=== PATIENT | female | born 1995 | race Caucasian/White ===

== ENCOUNTER 2017-01-30 12:55 | Emergency (ER) | payer OTHER ==
[~2017-01-30] VITALS: Ht 162.6 cm; Wt 77.8 kg
[2017-01-30 13:01] VITALS: Ht 162.6 cm; Wt 77.8 kg
[2017-01-30] MEDS ORDERED: IBUP-1542 PO (14:19)
[2017-01-30] MEDS ORDERED: AZIT250T94 PO (14:19)
--- NOTE | 2017-01-30 14:27 | ERD ---
ER Documentation Chief Complaint Chief Complaint fever , sore throat and mouth sores since sunday HPI 21-year-old female complaining of fever and sore throat 3 days. Patient reports sores in her mouth as well. She has pain when swallowing. She took Tylenol at home for fever, last dose was 4 AM. Denies cough or runny nose. ROS All systems reviewed and are negative except as per history of present illness. Medications Home Meds Active Scripts Ibuprofen* (Motrin*) 600 Mg Tab, 600 MG PO Q6H Y for PAIN AND OR ELEVATED TEMP, #30 TAB Prov:JW HUTCHISON. ASSISTANT PRODUCER 01/30/17 Azithromycin* (Zithromax*) 250 Mg Tablet, 250 MG PO .ZPACK DIRECTED, #6 TAB TAKE 500 MG (2 TABS) THE FIRST DAY THEN 250 MG (1 TAB) DAYS 2-5 Prov:JW HUTCHISON. ASSISTANT PRODUCER 01/30/17 PMhx/Soc Medical and Surgical Hx: pt denies Medical Hx, pt denies Surgical Hx Physical Exam Vitals Vital Signs Date Time Temp Pulse Resp B/P Pulse Ox O2 Delivery O2 Flow Rate FiO2 01/30/17 13:01 100.7 118 18 132/83 97 Physical Exam General: Well-developed, well-nourished, conscious and coherent, in no distress Skin: Warm and dry without rash, good texture and turgor Head: Normocephalic without evidence of trauma Eyes: Sclera and conjunctivae normal; pupils equal, round, and reactive to light; extraocular movements are intact Nose/Face: Without rhinorrhea Mouth/throat: Mucous membranes are moist. No oral lesions noted. Posterior pharynx erythematous and swollen with purulent exudate Neck: Supple without meningismus or adenopathy. Carotids are equal. Trachea midline. No bruits or JVD Chest: Normal AP diameter. Good expansion without retractions. Nontender. Lungs are clear to auscultate bilaterally with good tidal volume Heart: Regular rate and rhythm. No murmur, rub, or gallops heard Extremities: Full range of motion. Good strength bilaterally. No clubbing, cyanosis, or edema. Peripheral pulses are intact. Sensation intact Neuro: Alert and oriented 4, GCS 15. Cranial nerves grossly intact. Motor and sensory exams nonfocal. Moves all extremities. Speech clear. Gait normal Procedures/MDM Well-appearing 21-year-old female presented ED with fever and sore throat 3 days. Patient symptoms and exam findings are consistent with strep pharyngitis. Patient will be treated empirically. Patient is allergic to penicillin, azithromycin will be given. I doubt URI, pneumonia, bronchitis, or measles. Patient appears well, stable for discharge and outpatient management. Medical decision making shared with patient and family. Education provided to patient and family. Patient and family expressed understanding of the plan. Medications on discharge: Ibuprofen, azithromycin. Follow-up: Primary care provider in 2-3 days or return to ED if worse. Disclaimer: Inadvertent spelling and grammatical errors are likely due to EHR/ dictation software use and do not reflect on the overall quality of patient care. Also, please note that the electronic time recorded on this note does not necessarily reflect the actual time of the patient encounter. Departure Diagnosis: Primary Impression: Strep pharyngitis Condition: Stable Patient Instructions: Pharyngitis, Strep (Presumed) [facility] Usted se [place] hecho un examen mdico de control que le indica que no est en judson condicin que requiera tratamiento urgente en el Departamento de Emergencia. Un estudio ms profundo y el tratamiento de rodney condicin pueden esperar sin ningn riesgo hasta que usted sea atendida/o en el consultorio de rodney mdico o judson cl paola. Es responsabilidad suya arreglar judson dilip para el seguimiento del mercedes. MANEJO DE CONDICIONES NO URGENTES EN EL FUTURO 1) Si usted tiene un mdico de atencin primaria: Usted debera llamar a rodney mdico de atencin primaria antes de venir al departamento de emergencia. Despus de las horas de consultorio, rodney doctor o rodney asociado/a est disponible por telfono. El mdico o enfermero de muna en el servicio telefnico puede asesorarle por coby medio para atender el problema, o mercedes contrario se puede programar judson dilip. 2) Si usted no tiene un mdico de atencin primaria: Llame al mdico o clnica de referencia que aparece abajo sharri las horas de consultorio para hacer judson dilip para que le vean. CLINICAS: [facility] [phone] [facility] [phone] [facility] [phone] [place] [id number] [phone] [place] [id number] [phone] [facility]. [phone] [address] Additional Instructions: Call your primary care doctor TOMORROW for an appointment during the next 2-3 days.See the doctor sooner or return here if your condition worsens before your appointment time. JW HUTCHISON NP Jan 30, 2017 14:27
== END 2017-01-30 14:40 | disposition home or self-care (01) ==
LOC: FTE 12:55
DX: J02.0 Streptococcal pharyngitis (principal)
CPT/HCPCS: 99283